=== PATIENT | female | born 1995 | race Caucasian/White ===

== ENCOUNTER 2024-09-19 13:00 | Emergency (ER) | payer SELFPAY ==
[2024-09-19 13:07] VITALS: RESP 18; BMI 22.8
[2024-09-19 13:34] VITALS: BP 124/83; PULSE 63; TEMP 98.2
[2024-09-19] MEDS ORDERED: ONDANSETRON 4 MG/2 ML VIAL ONE (13:35)
[2024-09-19] MEDS ORDERED: morphine SULFATE 4 MG/ML VIAL ONE (13:35)
[2024-09-19] MEDS: ONDANSETRON 4 MG/2 ML VIAL IVPUSH ONE (13:38)
[2024-09-19] MEDS: morphine CARPU-JECT 4 MG/1 ML DISP.SYRIN IVPUSH ONE (13:39)
[2024-09-19 13:53] LABS: HCG,QUALITATIVE URINE Negative
[2024-09-19 13:56] LABS: HEMATOCRIT 41.7 % (32.4-45.2); MCH 29.4 pg (25.7-33.7); MCHC 33.5 g/dl (32.0-36.0); MEAN CELL VOLUME 87.7 fl (80-96); MEAN PLT VOLUME 8.1 fl (7.5-11.1); PLATELET COUNT 318.4 10^3/uL (134-434); RBC 4.75 10^6/uL (3.60-5.2); RDW 14.2 % (11.6-15.6); WHITE BLOOD COUNT 7.4 10^3/uL (4.0-10.8)
[2024-09-19 14:07] LABS: EPITHELIAL CELLS 0-5 /hpf
[2024-09-19 14:12] LABS: ALBUMIN 4.7 g/dl (3.4-5.0); ALK PHOS 60 U/L (45-117); ANION GAP 8 mmol/L (4-13); BILIRUBIN,TOTAL 0.7 mg/dl (0.2-1); CALCIUM 9.9 mg/dl (8.5-10.1); CHLORIDE 103 mmol/L (98-107); CO2 25 mmol/L (21-32); CREATININE 0.9 mg/dl (0.6-1.3); GLUCOSE,RANDOM 102 mg/dl (74-106); SGOT/AST 14 U/L (15-37); SGPT/ALT 10 U/L (7-52); SODIUM 136 mmol/L (136-145); TOT PROT 6.8 g/dl (6.4-8.2)
[2024-09-19 15:17] LABS: PLATELET ESTIMATE ADEQUATE
== END 2024-09-19 15:30 | disposition home or self-care (01) ==
LOC: FER 13:00
PROC: 3E033NZ Introduction of Analgesics, Hypnotics, Sedatives into Peripheral Vein, Percutaneous Approach (ICD-10-PCS; principal; 2024-09-19)
PROC: 3E033GC Introduction of Other Therapeutic Substance into Peripheral Vein, Percutaneous Approach (ICD-10-PCS; 2024-09-19)
DX: N13.2 Hydronephrosis with renal and ureteral calculous obstruction (principal); R10.9 Unspecified abdominal pain; M54.50 Low back pain, unspecified; R11.2 Nausea with vomiting, unspecified
CPT/HCPCS: 36415; 76775-TC; 76856-TC; 80053; 81003; 81015; 84703; 85025; 87086; 99284-25